=== PATIENT | female | born 1985 | race Two or more races ===

== ENCOUNTER 2019-11-15 21:30 | Emergency (ER) | payer OTHER ==
[~2019-11-15] VITALS: Ht 165.1 cm; Wt 90.7 kg
[2019-11-15 21:30] VITALS: BP 127/91
[2019-11-15] MEDS ORDERED: LIDOCAINE 1%-EPI 1:100,000 20 ML VIAL TP ONE (22:00)
[2019-11-15] MEDS ORDERED: LIDOCAINE 1%-EPI 1:100,000 20 ML VIAL ONE (22:02)
--- NOTE | 2019-11-15 22:40 | NUR ---
PA AT BEDSIDE FOR WOUND CARE
--- NOTE | 2019-11-15 23:14 | NUR ---
Patient discharged to home in stable condition. Written and verbal after care instructions given. Patient verbalizes understanding of instruction. Pt ambulatory with a steady gait
== END 2019-11-15 23:15 | disposition home or self-care (01) ==
LOC: ER 21:32
DX: S91.012A Laceration without foreign body, left ankle, initial encounter (principal); W22.8XXA Striking against or struck by other objects, initial encounter; Y93.89 Activity, other specified; Y92.89 Other specified places as the place of occurrence of the external cause; Y99.8 Other external cause status
CPT/HCPCS: 12001; 73610; 99283; A6403; J3490

== ENCOUNTER 2019-11-23 14:02 | Emergency (ER) | payer OTHER ==
[~2019-11-23] VITALS: Ht 170.2 cm; Wt 86.2 kg
[2019-11-23 14:04] VITALS: BP 134/88
--- NOTE | 2019-11-23 14:25 | NUR ---
Patient discharged to home in stable condition. Written and verbal after care instructions given. Patient verbalizes understanding of instruction.
== END 2019-11-23 14:25 | disposition home or self-care (01) ==
LOC: ER 14:02
DX: S91.012D Laceration without foreign body, left ankle, subsequent encounter (principal); X58.XXXD Exposure to other specified factors, subsequent encounter

== ENCOUNTER 2025-01-01 15:42 | Emergency (ER) | payer OTHER ==
[~2025-01-01] VITALS: Ht 165.1 cm; Wt 95.3 kg
[2025-01-01 15:49] VITALS: BP 118/84
[2025-01-01] MEDS ORDERED: TDAP [DIPH/PERTUSSIS/TET] 0.5 ML VIAL IM ONE (15:58)
[2025-01-01] MEDS: TDAP [DIPH/PERTUSSIS/TET] 0.5 ML VIAL IM ONE (16:00)
[2025-01-01] MEDS ORDERED: LIDOCAINE 1% INJ 50 ML MDV IJ ONE (16:05)
[2025-01-01] MEDS ORDERED: ACETAMINOPHEN ES 500 MG TABLET ONE (16:06)
[2025-01-01] MEDS ORDERED: IBUPROFEN 600 MG TABLET ONE (16:06)
[2025-01-01 16:11] VITALS: TEMP 98
[2025-01-01] MEDS: IBUPROFEN 600 MG TABLET PO ONE (16:11)
[2025-01-01] MEDS: ACETAMINOPHEN ES 500 MG TABLET PO ONE (16:11)
[2025-01-01] MEDS: LIDOCAINE HCL/PF 1% 30 ML VIAL TP ONE (16:12)
[2025-01-01 17:07] VITALS: O2SAT 98
== END 2025-01-01 17:08 | disposition home or self-care (01) ==
LOC: ER 15:42
DX: S01.511A Laceration without foreign body of lip, initial encounter (principal); Z88.7 Allergy status to serum and vaccine; V28.41XA Electric (assisted) bicycle driver injured in noncollision transport accident in traffic accident, initial encounter; Y93.55 Activity, bike riding; Y92.488 Other paved roadways as the place of occurrence of the external cause; Y99.8 Other external cause status
CPT/HCPCS: 12011; 90471; 90715; 99283; J3490